=== PATIENT | female | born 1990 | race Two or more races ===

== ENCOUNTER 2020-02-14 09:23 | Outpatient (REF) | payer OTHER, SELFPAY ==
[2020-02-14 11:16] LABS: HBc Num1 0.05 S/CO (0.00-0.79); Hepatitis B Core Antibody Nonreactive (Nonreactive); Hepatitis B Surface Antigen Negative (Negative)
[2020-02-14 11:17] LABS: ~HepC Num1 0.07 S/CO (0.00-0.79); ~Hepatitis B Surface Antibody REACTIVE (Nonreactive); ~Hepatitis C Antibody Nonreactive (Nonreactive)
[2020-02-15 17:27] LABS: Rubella IgG Antibody 2.01 index; Rubeola IgG (Measles) >300.00 AU/mL
[2020-02-16 22:32] LABS: TS Negative Control Passed; TS Panel A 0; TS Panel B 0; TS Positive Control Passed; TSpotTB Negative (SeeBelow)
== END 2020-02-14 09:24 | disposition home or self-care (01) ==
LOC: HO.LAB 09:23
PROVIDERS: Visit Provider Internal Medicine
DX: Z02.1 Encounter for pre-employment examination (principal)
CPT/HCPCS: 86481; 86704; 86706; 86735; 86762; 86765; 86787; 86803; 87340

== ENCOUNTER 2020-07-21 16:27 | Emergency (ER) | payer OTHER, SELFPAY ==
[2020-07-21 17:25] VITALS: BP 121/68; PULSE 84; RESP 18; TEMP 36.9; O2SAT 100; BMI 23.3
[2020-07-21 18:39] LABS: Hematocrit 28.7 % (37-47); Hemoglobin 8.2 g/dl (12.0-16.0); Mean Corpuscular HGB Conc 28.6 g/dl (31.0-35.0); Mean Corpuscular Hemoglobin 19.1 pg (27.0-33.0); Mean Corpuscular Volume 66.9 fL (80-98); Mean Platelet Volume 10.6 fL (9.4-12.3); Platelet Count 512 X10*3/uL (160-400); Red Blood Count 4.29 X10*6/uL (4.20-5.50); Red Cell Distribution Width 17.6 % (11.0-16.0); White Blood Count 6.9 X10*3/uL (4.8-10.8)
[2020-07-21 18:44] LABS: Anion Gap 12 (12-20); Blood Urea Nitrogen 15 mg/dL (9-16); Carbon Dioxide 27 mmol/L (22-29); Chloride 107 mmol/L (96-108); Creatinine Clr Calc Pharmacy 103.8; Estimated Glomerular Filt Rate > 60; Glucose Random 87 mg/dL (60-115); Potassium 4.6 mmol/L (3.3-5.1); Sodium 141 mmol/L (135-145)
--- NOTE | 2020-07-21 19:44 | ED.RECABL ---
HPI - Recheck/Abnormal Lab/Rx General Chief Complaint: Recheck/Abnormal Lab/Rx Stated Complaint: Abnormal labs Time Seen by Provider: 07/21/20 19:27 Source: patient Mode of arrival: ambulatory Limitations: no limitations History of Present Illness HPI narrative: 30 y/o healthy female presenting with low blood counts. 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 She reports over the last 2-3 months she has been feeling very fatigued, dizzy and SOB with exertion. She also states that her menses have been very heavy lately and lasting 7-8 days. She is currently on day 2 of her menstrual cycle now. She denies history of anemia. No melena or BRBPR. She is not on blood thinners. MD complaint: abnormal lab Initial visit (ago): week(s) Returns today for: called because of abnormal lab/test Description of abnormal result: anemia, hgb 7 Associated symptoms: shortness of breath and other (dizziness & fatigue ) Related Data Previous Rx's Medication Instructions Recorded ferrous sulfate 325 mg PO DAILY #30 tab 07/22/20 Allergies Allergy/AdvReac Type Severity Reaction Status Date / Time No Known Allergies Allergy Unverified 07/21/20 17:25 [No Known Allergies*] Review of Systems Review of Systems: Constitutional: No Fever, No Chills ENT/Mouth: No sore throat, No Rhinorrhea, No Swallowing Difficulty Cardiovascular: No Chest Pain, No SOB, No Orthopnea, No Edema Respiratory: No Cough, No Sputum, No Wheezing, No dyspnea Gastrointestinal: No Nausea, No Vomiting, No Diarrhea, No abdominal Pain, No Hematochezia, No Melena Genitourinary: No Dysuria, No Urinary Frequency, No Hematuria, +heavy vaginal bleeding, No vaginal discharge Musculoskeletal: No joint pain, No Myalgias Skin: No Skin Lesions, No rash Neuro: No Weakness, No Numbness, No Dizziness, No Headache Psych: No Anxiety/Panic, No Depression Heme/Lymph: No Bruising, No Lymphadenopathy Endocrine: No Polyuria, No Polydipsia PMF Past Medical History Medical History Anxiety Asthma PCOS (polycystic ovarian syndrome) PTSD (post-traumatic stress disorder) Social History Social History Alcohol intake: never Smoking Status: Former smoker Use of substances other than those prescribed or required for medical reasons: No Advance Directives: No Advance Directives Information Provided: Yes Physical Exam Vital Signs: Vital Signs: Last Vital Signs Temp 98.0 F 07/22/20 00:00 Pulse 53 07/22/20 00:00 Resp 16 07/22/20 00:00 BP 103/66 07/22/20 00:00 Pulse Ox 100 07/22/20 00:00 Body Mass Index 23.3 Appearance: Alert. Oriented X3. No acute distress. Eyes: Pupils equal, round and reactive to light. Conjunctiva with pallor ENT: Pharynx normal. Neck: Normal inspection. Neck supple. CVS: Normal heart rate and rhythm. Pulses normal. Respiratory: No respiratory distress. Breath sounds normal. Abdomen: Soft and nontender. +BS x4. Pelvic exam deferred Skin: Skin warm and dry. Normal skin color. Normal skin turgor. No rashes. Extremities: No lower extremity edema. Neuro: Oriented X 3. No motor deficit. No sensory deficit. Course Course Course Narrative: 30 y/o female presenting with symptomatic anemia. H/H 11/18 with SOB, dizziness and ROCHA. She is on her period now, day 2 and it is heavy flow. She is uncomfortable starting any hormonal therapy without speaking with her BENEFITS COUNSELOR first. She is agreeable to blood transfusion at this time and given she is symptomatic will transfuse. Consent obtained. Reevaluation(s) Reevaluation #1: Patient tolerated blood transfusion well. She is stable for discharge with plan to f/u with her assembly press operator Friday as well as Heme/Onc for workup of her microcytic anemia. Her retic counts are on the low side given her degree of anemia. Will start her on oral iron. She agrees to follow up and will come back to the ER if symptoms worsen. MDM - Recheck/Abnormal Lab/Rx Lab Data Result diagrams: 07/21/20 18:11 07/21/20 18:11 Labs: Lab Results 07/21/20 07/21/20 07/21/20 Range/Units 18:11 18:11 19:50 WBC 6.9 (4.8-10.8) X10*3/uL RBC 4.29 (4.20-5.50) X10*6/uL Hgb 8.2 L (12.0-16.0) g/dl Hct 28.7 L (37-47) % MCV 66.9 L (80-98) fL MCH 19.1 L (27.0-33.0) pg MCHC 28.6 L (31.0-35.0) g/dl RDW 17.6 H (11.0-16.0) % Plt Count 512 H (160-400) X10*3/uL MPV 10.6 (9.4-12.3) fL Immature Gran % (Auto) Cancelled Neut % (Auto) Cancelled Lymph % (Auto) Cancelled [place] % (Auto) Cancelled Eos % (Auto) Cancelled Baso % (Auto) Cancelled Lymph # (Auto) Cancelled [place] # (Auto) Cancelled Eos # (Auto) Cancelled Baso # (Auto) Cancelled Abs Immat Gran (auto) Cancelled Absolute Neuts (auto) Cancelled Absolute Nucleated RBC 0.000 (0.0-0.012) X10*3/uL Nucleated RBC % (auto) 0.0 (0.0-0.2) /100WBC Neutrophils % (Manual) 56 (45-73) % Band Neutrophils % 0 L (3-5) % Lymphocytes % (Manual) 36 (20-40) % Monocytes % (Manual) 6 (2-11) % Basophils % (Manual) 2 H (0-1) % Abs Neuts (Manual) 3.9 (2.2-7.9) X10*3/uL Lymphocytes # (Manual) 2.5 (0.6-4.8) X10*3/uL Monocytes # (Manual) 0.4 (0.0-1.2) X10*3/uL Basophils # (Manual) 0.1 (0.0-0.3) X10*3/uL Platelet Estimate SLIGHTLY INCREASED (NORMAL) Plt Morphology Comment NORMAL RBC Morphology NOTED Hypochromasia 3+ (>30) /OIF Microcytosis 2+ (15-30) /OIF Ovalocytes 2+ (15-30) /OIF Smear Tech's Comments MANUAL DIFF Absolute Retic 0.043 (0.026-0.095) X10*6/uL Percent Retic 1.0 (0.5-1.8) % Immature Retic Fraction 11.5 (3.0-15.9) % Retic Hgb Equivalent 18.5 L (30.0-35.0) pg Sodium 141 (135-145) mmol/L Potassium 4.6 (3.3-5.1) mmol/L Chloride 107 (96-108) mmol/L Carbon Dioxide 27 (22-29) mmol/L Anion Gap 12 (12-20) BUN 15 (9-16) mg/dL Creatinine 0.70 (0.5-1.4) mg/dL Estim Creat Clear Calc 103.8 Estimated GFR > 60 Random Glucose 87 (60-115) mg/dL Calcium 9.0 (8.4-10.2) mg/dL Blood Type O Positive Antibody Screen NEGATIVE Crossmatch See Detail Discharge Plan Discharge Clinical Impression: Acute blood loss anemia Patient Disposition: Home, Self-Care Instructions: Anemia (ED) Additional Instructions: Your blood counts today were low. Hemoglobin was 8.2. You were given a unit of blood given your symptoms of anemia, including fatigue and shortness of breath. Recommend starting iron supplements. You need to follow up with your BENEFITS COUNSELOR on Friday. There are medications you can be started on to help lessen your menstrual flow. You may need further workup at a [facility] - the number to call is below. Also recommend following up with your doctor next week. If you have worsening symptoms come back to the ER for further evaluation. Prescriptions: New ferrous sulfate 325 mg (65 mg iron) tablet 325 mg PO DAILY Qty: 30 RF: 0 Referrals: Margy Albright MD [Physician] - 1 week (symptomatic microcytic anemia)
[2020-07-21 19:54] LABS: Immature Retic Fraction 11.5 % (3.0-15.9); Retic HGB Equivalent 18.5 pg (30.0-35.0); Reticulocytes Absolute 0.043 X10*6/uL (0.026-0.095)
[2020-07-21 19:56] LABS: SLIDE REVIEW MANUAL DIFF
[2020-07-21 20:18] LABS: Band Neutrophils Percent 0 % (3-5); Basophils Abs Manual 0.1 X10*3/uL (0.0-0.3); Basophils Percent Manual 2 % (0-1); Lymphocytes Absolute Manual 2.5 X10*3/uL (0.6-4.8); Lymphocytes Percent Manual 36 % (20-40); Monocytes Absolute Manual 0.4 X10*3/uL (0.0-1.2); Monocytes Percent Manual 6 % (2-11); Neutrophils Absolute Manual 3.9 X10*3/uL (2.2-7.9); Neutrophils Percent Manual 56 % (45-73); RBC Morphology NOTED
[2020-07-21 20:19] VITALS: BP 113/59; PULSE 71; RESP 16; TEMP 37.1; O2SAT 100
[2020-07-21 20:20] LABS: Hypochromasia 3+ (>30) /OIF; Microcytosis 2+ (15-30) /OIF
[2020-07-21 20:21] LABS: Ovalocytes 2+ (15-30) /OIF
[2020-07-21 20:22] LABS: Platelet Estimate SLIGHTLY INCREASED (NORMAL); Platelet Morphology Comment NORMAL
[2020-07-21 22:00] VITALS: BP 105/70; PULSE 74; RESP 16; TEMP 36.8; O2SAT 100
[2020-07-21 22:33] VITALS: BP 115/75; PULSE 71; RESP 12; TEMP 36.7
[2020-07-21 22:49] VITALS: BP 110/58; BP 110/65; PULSE 65; PULSE 72; RESP 10; RESP 11; TEMP 36.6; TEMP 36.7
--- NOTE | 2020-07-21 23:32 | PC.NURSE ---
Blood tranfusion began at 2234 without incident. Patient tolerated the first 15 minutes without incident.
[2020-07-22] VITALS: BP 103/66; PULSE 53; RESP 16; TEMP 36.7; O2SAT 100
[2020-07-22 00:27] LABS: MANUAL DIFF FLAG NO
[2020-07-22 00:28] LABS: Basophils Absolute Auto 0.1 X10*3/uL (0.0-0.2); Basophils Percent Auto 1.2 % (0-2); Eosinophils Absolute Auto 0.1 X10*3/uL (0.0-0.4); Hematocrit 31.3 % (37-47); Hemoglobin 9.3 g/dl (12.0-16.0); Imm Gran Abs Auto 0.01 X10*3/uL (0.00-0.03); Imm Gran Pct Auto 0.1 % (0.0-0.4); Lymphocytes Absolute Auto 3.6 X10*3/uL (1.2-4.9); Lymphocytes Percent Auto 47.4 % (20-40); Mean Corpuscular HGB Conc 29.7 g/dl (31.0-35.0); Mean Corpuscular Hemoglobin 20.8 pg (27.0-33.0); Mean Corpuscular Volume 69.9 fL (80-98); Mean Platelet Volume 9.9 fL (9.4-12.3); Monocytes Absolute Auto 0.6 X10*3/uL (0.1-1.2); Monocytes Percent Auto 7.8 % (2-11); Neutrophils Absolute Auto 3.3 X10*3/uL (2.0-8.3); Neutrophils Percent Auto 42.5 % (45-73); Platelet Count 424 X10*3/uL (160-400); Red Blood Count 4.48 X10*6/uL (4.20-5.50); Red Cell Distribution Width 20.4 % (11.0-16.0); White Blood Count 7.7 X10*3/uL (4.8-10.8)
== END 2020-07-22 00:57 | disposition home or self-care (01) ==
PROVIDERS: Physician Assistant; Emergency Provider Internal Medicine; PCP Internal Medicine
DX: D62 Acute posthemorrhagic anemia (principal); R53.83 Other fatigue; R42 Dizziness and giddiness; R06.02 Shortness of breath
CPT/HCPCS: 36415; 36430; 80048; 85007; 85025; 85027; 85045; 86850; 86900; 86901; 86923; 99284; 99285; P9016

== ENCOUNTER 2020-07-24 09:40 | Outpatient (REF) | payer OTHER, SELFPAY ==
[2020-07-24 11:09] LABS: Glucose Urine UA NEG (NEG); Leukocyte Esterase Urine NEG (NEG); Nitrite Urine NEG (NEG); PH 6.5 (5.0-8.0); Specific Gravity - Urine 1.015 (1.005-1.025); Urine Blood TRACE (NEG); Urine Ketones NEG (NEG); Urine Protein NEG (NEG-TRACE)
[2020-07-24 11:14] LABS: Basophils Absolute Auto 0.1 X10*3/uL (0.0-0.2); Hemoglobin 10.4 g/dl (12.0-16.0); MANUAL DIFF FLAG SCAN; Mean Corpuscular Volume 70.6 fL (80-98); SCAN SMEAR FLAG 1
[2020-07-24 11:16] LABS: Basophils Percent Auto 1.3 % (0-2); Eosinophils Percent Auto 0.6 % (0-4); Hematocrit 36.3 % (37-47); Imm Gran Abs Auto 0.02 X10*3/uL (0.00-0.03); Imm Gran Pct Auto 0.3 % (0.0-0.4); Immature Retic Fraction 20.2 % (3.0-15.9); Lymphocytes Absolute Auto 1.5 X10*3/uL (1.2-4.9); Lymphocytes Percent Auto 24.6 % (20-40); Mean Corpuscular HGB Conc 28.7 g/dl (31.0-35.0); Mean Corpuscular Hemoglobin 20.2 pg (27.0-33.0); Mean Platelet Volume 10.5 fL (9.4-12.3); Monocytes Absolute Auto 0.5 X10*3/uL (0.1-1.2); Monocytes Percent Auto 8.3 % (2-11); Neutrophils Percent Auto 64.9 % (45-73); Platelet Count 459 X10*3/uL (160-400); Red Blood Count 5.14 X10*6/uL (4.20-5.50); Red Cell Distribution Width 21.1 % (11.0-16.0); Retic HGB Equivalent 22.9 pg (30.0-35.0); Reticulocytes Absolute 0.051 X10*6/uL (0.026-0.095); White Blood Count 6.2 X10*3/uL (4.8-10.8)
[2020-07-24 11:31] LABS: Appearance Urine CLEAR; Color Urine YELLOW
[2020-07-24 11:33] LABS: Alanine Aminotransferase 18 U/L (0-31); Albumin Level 4.3 g/dL (3.5-5.0); Alkaline Phosphatase 64 U/L (39-117); Anion Gap 12 (12-20); Aspartate Amino Transferase 23 U/L (5-31); Bilirubin Total 0.3 mg/dL (0.0-1.0); Blood Urea Nitrogen 14 mg/dL (9-16); Carbon Dioxide 27 mmol/L (22-29); Chloride 106 mmol/L (96-108); Estimated Glomerular Filt Rate > 60; Glucose Random 76 mg/dL (60-115); Iron 139 mcg/dL (30-160); Percent Iron Saturation 31 % (15-50); Potassium 4.8 mmol/L (3.3-5.1); Sodium 140 mmol/L (135-145); Total Iron Binding Capacity 452 mcg/dL (228-428); Total Protein 6.8 g/dL (6.5-8.0); Unsaturated Iron Binding 313 ug/dL
[2020-07-24 11:41] LABS: SLIDE REVIEW VERIFIED
[2020-07-24 11:49] LABS: Syphilis Screen Nonreactive (Nonreactive)
[2020-07-24 11:50] LABS: HIV AB/AG Nonreactive (Nonreactive); HIV Num 1 0.05 S/CO (0.00-0.99); Hepatitis B Surface Antigen Negative (Negative); ~HepC Num1 0.09 S/CO (0.00-0.79); ~Hepatitis C Antibody Nonreactive (Nonreactive)
[2020-07-24 11:55] LABS: Ferritin 8 ng/mL (10-122); Free T4 (Free Thyroxine) 1.04 ng/dL (0.71-1.85); Thyroid Stimulating Hormone 1.82 uIU/mL (0.32-4.0)
[2020-07-24 12:03] LABS: Folate 15.2 ng/mL (> or = 4.0); HBc Num1 0.04 S/CO (0.00-0.79); Hepatitis B Core Antibody Nonreactive (Nonreactive); Vitamin B12 323 pg/mL (200-900); ~Hepatitis B Surface Antibody REACTIVE (Nonreactive)
[2020-07-24 12:24] LABS: RBC Urine 0 /HPF (0); Squamous Epithelial Cell Urine 2+ /LPF; WBC Urine 0 /HPF (0-4)
== END 2020-07-24 09:41 | disposition home or self-care (01) ==
LOC: HO.LAB 09:40
PROVIDERS: PCP Internal Medicine; Visit Provider Internal Medicine
DX: D50.0 Iron deficiency anemia secondary to blood loss (chronic) (principal); R94.5 Abnormal results of liver function studies; N92.1 Excessive and frequent menstruation with irregular cycle
CPT/HCPCS: 36415; 80053; 81001; 82607; 82728; 82746; 83540; 84439; 84443; 85025; 85045; 86704; 86706; 86780; 86803; 87340; 87389

== ENCOUNTER 2020-08-09 14:34 | Outpatient (REF) | payer OTHER, SELFPAY ==
--- NOTE | ~2020-08-09 | US_ITS ---
EXAMINATION: ULTRASOUND PELVIS AND TRANSVAGINAL. CLINICAL INFORMATION: Excessive and frequent menstruation COMPARISON: None TECHNIQUE: Transabdominal and transvaginal imaging of pelvis is performed. FINDINGS: The uterus is anteverted measuring 7.1 cm in length, 3.6 cm in AP and 4.3 cm in transverse dimension. Endometrial thickness is 0.4 x 0.5 cm. There are small nabothian cysts in the cervix. The right ovary measures 3.9 x 3.1 x 2.2 cm and volume 14 mL. It appears unremarkable. The left ovary measures 4.0 x 2.0 x by 2.1 cm and volume 9.0 mL. It appears unremarkable. There is no free fluid in the cul-de-sac. US/US pelvic and transvaginal IMPRESSION: Unremarkable uterus and ovaries. Small nabothian cysts seen in the cervix.
== END 2020-08-09 14:35 | disposition home or self-care (01) ==
LOC: HO.US 14:34
PROVIDERS: Visit Provider Internal Medicine
DX: N92.1 Excessive and frequent menstruation with irregular cycle (principal)
CPT/HCPCS: 76830; 76856

== ENCOUNTER 2020-08-25 11:34 | Outpatient (REF) | payer OTHER, SELFPAY | END 2020-08-25 11:35 | disposition home or self-care (01) | LOC: HO.MDS 11:34 | PROVIDERS: PCP Internal Medicine; Visit Provider Internal Medicine Medical Oncology | DX: D50.9 Iron deficiency anemia, unspecified (principal) | CPT/HCPCS: 96365; J2916 ==

== ENCOUNTER 2020-09-01 14:37 | Outpatient (REF) | payer OTHER, SELFPAY | END 2020-09-01 14:38 | disposition home or self-care (01) | LOC: HO.MDS 14:37 | PROVIDERS: PCP Internal Medicine; Visit Provider Internal Medicine Medical Oncology | DX: D50.9 Iron deficiency anemia, unspecified (principal) | CPT/HCPCS: 96365; J2916 ==

== ENCOUNTER 2020-09-04 14:01 | Outpatient (REF) | payer OTHER, SELFPAY | END 2020-09-04 14:02 | disposition home or self-care (01) | LOC: HO.MDS 14:01 | PROVIDERS: Visit Provider Internal Medicine Medical Oncology | DX: D50.9 Iron deficiency anemia, unspecified (principal) | CPT/HCPCS: 96365; J2916 ==

== ENCOUNTER 2020-09-12 17:55 | Outpatient (REF) | payer OTHER, SELFPAY ==
[2020-09-12 18:16] LABS: Appearance Urine CLEAR; Color Urine YELLOW; Glucose Urine UA NEG (NEG); Leukocyte Esterase Urine NEG (NEG); Nitrite Urine NEG (NEG); Specific Gravity - Urine 1.025 (1.005-1.025); Urine Blood NEG (NEG); Urine Ketones 5 MG/DL (NEG); Urine Protein NEG (NEG-TRACE)
[2020-09-12 18:26] LABS: RBC Urine 0 /HPF (0); Squamous Epithelial Cell Urine 1+ /LPF; WBC Urine 0-2 /HPF (0-4)
[2020-09-13 07:57] LABS: HBc Num1 0.05 S/CO (0.00-0.79); Hepatitis B Core Antibody Nonreactive (Nonreactive); ~HepC Num1 0.05 S/CO (0.00-0.79); ~Hepatitis C Antibody Nonreactive (Nonreactive)
[2020-09-13 08:07] LABS: HBS Num1 165.33 mIU/mL (0-7.99); HBsAGNum1 0.36 S/CO (0.00-0.99); HIV AB/AG Nonreactive (Nonreactive); HIV Num 1 0.17 S/CO (0.00-0.99); Hepatitis B Surface Antigen Negative (Negative); ~Hepatitis B Surface Antibody REACTIVE (Nonreactive)
[2020-09-13 08:54] LABS: Syphilis Screen Nonreactive (Nonreactive)
== END 2020-09-12 17:56 | disposition home or self-care (01) ==
LOC: HO.LAB 17:55
PROVIDERS: PCP Internal Medicine; Visit Provider Internal Medicine
DX: N89.8 Other specified noninflammatory disorders of vagina (principal); D50.0 Iron deficiency anemia secondary to blood loss (chronic); R94.5 Abnormal results of liver function studies; Z11.3 Encounter for screening for infections with a predominantly sexual mode of transmission
CPT/HCPCS: 36415; 81001; 86704; 86706; 86780; 86803; 87340; 87389

== ENCOUNTER 2020-09-13 12:32 | Outpatient (REF) | payer OTHER, SELFPAY ==
[2020-09-14 03:54] LABS: CT PCR NOT DETECTED (Not Detect.); NG PCR NOT DETECTED (Not Detect.)
[2020-09-14 10:03] LABS: BV Int Neg Control Negative (Negative); BV Int Pos Control Positive (Positive)
[2020-09-27 21:06] LABS: HPV mRNA E6/E7 rflx Not Detected (Not Detected)
== END 2020-09-13 12:33 | disposition home or self-care (01) ==
LOC: HO.LAB 12:32
PROVIDERS: Visit Provider Internal Medicine
DX: Z12.4 Encounter for screening for malignant neoplasm of cervix (principal); Z11.3 Encounter for screening for infections with a predominantly sexual mode of transmission
CPT/HCPCS: 87480; 87491; 87510; 87591; 87624; 87660; 88142

== ENCOUNTER 2020-09-18 13:55 | Outpatient (REF) | payer OTHER, SELFPAY ==
[2020-09-18 15:14] LABS: MANUAL DIFF FLAG NO
[2020-09-18 15:17] LABS: Basophils Absolute Auto 0.1 X10*3/uL (0.0-0.2); Basophils Percent Auto 1.1 % (0-2); Eosinophils Percent Auto 0.4 % (0-4); Hematocrit 38.8 % (37-47); Imm Gran Abs Auto 0.01 X10*3/uL (0.00-0.03); Imm Gran Pct Auto 0.2 % (0.0-0.4); Lymphocytes Absolute Auto 1.6 X10*3/uL (1.2-4.9); Lymphocytes Percent Auto 30.7 % (20-40); Mean Corpuscular HGB Conc 30.9 g/dl (31.0-35.0); Mean Corpuscular Hemoglobin 24.8 pg (27.0-33.0); Mean Corpuscular Volume 80.3 fL (80-98); Monocytes Absolute Auto 0.3 X10*3/uL (0.1-1.2); Monocytes Percent Auto 6.2 % (2-11); Neutrophils Absolute Auto 3.3 X10*3/uL (2.0-8.3); Neutrophils Percent Auto 61.4 % (45-73); Platelet Count 271 X10*3/uL (160-400); Red Blood Count 4.83 X10*6/uL (4.20-5.50); Red Cell Distribution Width 23.5 % (11.0-16.0); White Blood Count 5.4 X10*3/uL (4.8-10.8)
== END 2020-09-18 13:56 | disposition home or self-care (01) ==
LOC: HO.MDS 13:55
PROVIDERS: PCP Internal Medicine; Visit Provider Internal Medicine Medical Oncology
DX: D50.9 Iron deficiency anemia, unspecified (principal)
CPT/HCPCS: 36415; 85025; 96372; J2916

== ENCOUNTER 2021-12-29 07:14 | Outpatient (REF) | payer OTHER, SELFPAY ==
[2021-12-29 07:41] LABS: MANUAL DIFF FLAG NO
[2021-12-29 08:24] LABS: Basophils Absolute Auto 0.1 X10*3/uL (0.0-0.2); Basophils Percent Auto 0.8 % (0-2); Eosinophils Absolute Auto 0.1 X10*3/uL (0.0-0.4); Eosinophils Percent Auto 0.9 % (0-4); Hematocrit 43.2 % (37.0-47.0); Hemoglobin 13.8 g/dl (12.0-16.0); Imm Gran Abs Auto 0.01 X10*3/uL (0.00-0.03); Imm Gran Pct Auto 0.2 % (0.0-0.4); Lymphocytes Absolute Auto 1.7 X10*3/uL (1.2-4.9); Lymphocytes Percent Auto 26.3 % (20-40); Mean Corpuscular HGB Conc 31.9 g/dl (31.0-35.0); Mean Corpuscular Hemoglobin 27.3 pg (27.0-33.0); Mean Corpuscular Volume 85.4 fL (80.0-98.0); Mean Platelet Volume 11.5 fL (9.4-12.3); Monocytes Absolute Auto 0.4 X10*3/uL (0.1-1.2); Monocytes Percent Auto 6.9 % (2-11); Neutrophils Absolute Auto 4.2 x10*3/uL (2.0-8.3); Neutrophils Percent Auto 64.9 % (45-73); Platelet Count 284 X10*3/uL (160-400); Red Blood Count 5.06 X10*6/uL (4.20-5.50); Red Cell Distribution Width 13.6 % (11.0-16.0); White Blood Count 6.4 X10*3/uL (4.8-10.8)
[2021-12-29 09:20] LABS: Alanine Aminotransferase 27 U/L (0-31); Albumin Level 4.4 g/dL (3.5-5.0); Alkaline Phosphatase 67 U/L (39-117); Anion Gap 13 (12-20); Aspartate Amino Transferase 25 U/L (5-31); Bilirubin Total 0.4 mg/dL (0.0-1.0); Blood Urea Nitrogen 12 mg/dL (9-16); Calcium 9.4 mg/dL (8.4-10.2); Carbon Dioxide 28 mmol/L (22-29); Chloride 104 mmol/L (96-108); Estimated Glomerular Filt Rate > 60; Glucose Random 84 mg/dL (60-115); Potassium 4.6 mmol/L (3.3-5.1); Sodium 140 mmol/L (135-145)
[2021-12-29 10:05] LABS: Appearance Urine Clear; Color Urine Yellow; Glucose Urine UA Negative (Negative); Leukocyte Esterase Urine Negative (Negative); Nitrite Urine Negative (Negative); Urine Blood Negative (Negative); Urine Ketones Negative (Negative); Urine Protein Negative (Neg-Trace)
[2021-12-31 05:02] LABS: HBc Num1 0.07 S/CO (0.00-0.79); HBsAGNum1 0.14 S/CO (0.00-0.99); Hepatitis B Core Antibody Nonreactive (Nonreactive); Hepatitis B Surface Antigen Negative (Negative); ~HepC Num1 0.15 S/CO (0.00-0.79); ~Hepatitis B Surface Antibody REACTIVE (Nonreactive); ~Hepatitis C Antibody Nonreactive (Nonreactive)
[2021-12-31 05:32] LABS: HIV AB/AG Nonreactive (Nonreactive); HIV Num 1 0.07 S/CO (0.00-0.99)
[2022-01-02 19:06] LABS: Treponema pallidum Ab FTA ABS Nonreactive (Nonreactive)
== END 2021-12-29 07:15 | disposition home or self-care (01) ==
LOC: HO.LAB 07:14
PROVIDERS: Nurse Practitioner Family; PCP Internal Medicine; Visit Provider Internal Medicine
DX: R10.32 Left lower quadrant pain (principal); R14.0 Abdominal distension (gaseous); R79.89 Other specified abnormal findings of blood chemistry; Z11.4 Encounter for screening for human immunodeficiency virus [HIV]; Z11.59 Encounter for screening for other viral diseases
CPT/HCPCS: 36415; 80053; 81003; 81382; 85025; 86704; 86706; 86780; 86803; 87340; 87389

== ENCOUNTER 2021-12-31 09:57 | Outpatient (REF) | payer OTHER, SELFPAY ==
[2022-01-02 11:51] LABS: TS Negative Control Passed; TS Panel A 0; TS Panel B 0; TS Positive Control Passed; TSpotTB Negative (Negative)
== END 2021-12-31 09:58 | disposition home or self-care (01) ==
LOC: HO.LAB 09:57
PROVIDERS: PCP Internal Medicine; Visit Provider Internal Medicine
DX: Z20.2 Contact with and (suspected) exposure to infections with a predominantly sexual mode of transmission (principal); Z11.1 Encounter for screening for respiratory tuberculosis
CPT/HCPCS: 36415; 86481

== ENCOUNTER → 2022-01-31 14:41 | Outpatient (REF) | payer OTHER, SELFPAY | LOC: HO.SL 14:41 | PROVIDERS: PCP Internal Medicine; Visit Provider Internal Medicine | DX: G47.10 Hypersomnia, unspecified (principal); R06.83 Snoring | CPT/HCPCS: 95806 ==

== ENCOUNTER 2022-02-01 07:50 | Outpatient (REF) | payer OTHER, SELFPAY ==
[2022-02-01 08:49] LABS: Cholesterol 158 mg/dL; HDL Cholesterol 68 mg/dL; LDL Cholesterol Calculated 81 mg/dl; Triglycerides 48 mg/dL
[2022-02-01 12:44] LABS: Vitamin D 25-OH Total 27.6 ng/mL (>30)
[2022-02-08 13:11] LABS: Transglutaminase Ab IgG <1.0 U/mL; Transglutaminase IgA <1.0 U/mL
== END 2022-02-01 07:51 | disposition home or self-care (01) ==
LOC: HO.LAB 07:50
PROVIDERS: Visit Provider Nurse Practitioner Family
DX: Z00.00 Encounter for general adult medical examination without abnormal findings (principal); R14.0 Abdominal distension (gaseous)
CPT/HCPCS: 36415; 80061; 82306; 84443; 86364

== ENCOUNTER → 2023-11-27 13:49 | Outpatient (RCR) | payer OTHER, SELFPAY ==
[2020-08-11 14:05] VITALS: BP 131/73; PULSE 95; RESP 12; TEMP 36.8; O2SAT 99; BMI 24.9
--- NOTE | 2020-08-11 14:34 | P.CNHO_ITS ---
Subjective - Subjective Chief complaint: Consult for: Iron deficiency anemia. Patient: new to practice Consult date: 08/11/20 Primary Care Provider: Ronit Monroe MD Medical Summary: DIAGNOSIS: IRON DEFICIENCY ANEMIA. HPI - Consult Narrative Reason for consult: Consult for: Iron deficiency anemia. Narrative: Cassia Scott is a pleasant 30 year old lady, who has been feeling rather fatigued. Review of her labs revealed, the following hemoglobin trend: 06/09:11.5. 07/21: 8.2. She has received 1 unit of blood in the ER. 07/22: 9.3. /: 10.4. She has been started on oral iron and vitamin-C. ROS: She tells me that she had a gastric sleeve operation at [facility] in 2016. Since then she has felt progressively more fatigued. Denies fever nor chills. Appetite is good. She has lost weight. Denies headaches. She does get dizzy at times. She has chest pain and trouble breathing on exertion. She complains of some pain in the abdomen and bloating as if she was . Bowels are mostly constipated. Denies gross blood in the stools. She does have a heavy period. She has an appointment with counseling center managerRoseline at [facility] on September 01. If she drinks lots of fluids she has to go to the bathroom a lot. She complains of pain in her joints. Her bones crack. That hurts. She has depression and anxiety. She has mood swings. Family history: Her mom had anemia. She was on IV iron. 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 She is not . She has no children. She lost 1 child during . She denies smoking. She used to drink heavily but quit couple years ago. Review of Systems - Constitutional Reports no additional constitutional complaints, Reports lack of energy, Reports malaise, Reports weight gain - Eyes Reports no additional eye complaints - ENT Reports no additional ear, nose, mouth, and throat complaints - Cardiovascular Reports no additional cardiovascular complaints - Respiratory Reports no additional respiratory complaints - Gastrointestinal Reports no additional gastrointestinal complaints - Genitourinary Reports no additional female genitourinary complaints - Musculoskeletal Reports no additional musculoskeletal complaints - Integumentary/Breasts Skin/Breast: Reports no additional skin complaints - Neurologic Reports no additional neurologic complaints - Psychiatric Reports no additional psychiatric complaints - Endocrine Reports no additional endocrine complaints - Hematologic/Lymphatic Reports no additional hematologic/lymphatic complaints - Allergic/Immunologic Reports no additional allergic/immunologic complaints Oncology Screenings - ECOG Performance Status ECOG Performance Status: 1 [facility] Medical History: Medical History (Last Reviewed 08/11/20 @ 14:06 by Tanika Bran) Anxiety Asthma PCOS (polycystic ovarian syndrome) PTSD (post-traumatic stress disorder) Functional capacity: independent ambulation Patient : No Family History: Family History (Last Updated 08/11/20 @ 14:07 by Tanika Brna) Maternal Grandfather Anemia Myocardial infarct Beta-thalassemia Father Myocardial infarct Mother Anemia Sister Anemia Surgical History: Surgical History (Last Reviewed 08/11/20 @ 14:06 by Tanika Bran) History of sleeve gastrectomy Social History: Social History (Last Updated 08/11/20 @ 14:06 by Tnaika Bran) Alcohol History: Alcohol intake: current Alcohol History Details: Alcohol intake frequency: holiday/special occasion Alcohol type: beer Tobacco History: Smoking Status: Former smoker Substance Use History: Use of substances other than those prescribed or required for medical reasons : No Nutrition Assessment: Patient : No Smoking status: Former smoker Home Medications and Allergies Allergies Allergy/AdvReac Type Severity Reaction Status Date / Time No Known Allergies Allergy Unverified 07/21/20 17:25 [No Known Allergies*] Physical Exam Vital signs: Vital Signs Temp 98.2 F 08/11/20 14:05 Pulse 95 08/11/20 14:05 Resp 12 08/11/20 14:05 BP 131/73 08/11/20 14:05 Pulse Ox 99 08/11/20 14:05 Intake & Output 08/10/20 08/11/20 08/11/20 18:59 06:59 18:59 Other: Weight 67.9 kg Weight in Grams [id number] Weight 67.9 kg - Constitutional Present: mild distress - Routine HEENT Exam Head: Present: normal inspection ENT: Present: mucous membranes moist - Routine Neck Exam Present: supple Hem/Onc Consult Result - Labs CBC & Chem 7: 08/11/20 14:50 08/11/20 14:50 Assessment and Plan (1) Iron deficiency anemia Status: Acute Iron studies: Previous iron studies: 139452. Recent iron studies: 45. Retic: 1. B12 323. Folate 1.5.2. This is a pleasant 30-year-old lady, who has had easy fatigability, progressing over the past few years. She has been noted to be anemic. Anemia is microcytic hypochromic. She did require a blood transfusion 3 weeks ago, in the ER. DIFFERENTIAL DIAGNOSIS: 1. IRON DEFICIENCY ANEMIA: She has history of heavy periods. Ferritin is low. So this is most likely. The other possibilities of celiac disease related to iron malabsorption. 2. ANEMIA OF CHRONIC DISEASE: Is a possibility. 3. MULTIFACTORIAL ANEMIA WITH ADDITIONAL B12 FOLATE DEFICIENCY: However B12 and folate were checked and are normal. 4. HEMOLYTIC ANEMIA: This is less likely. 5. UNDERLYING MYELO INFILTRATIVE DISORDER: Less likely to be present, without any other hematological abnormality. PLAN: I will proceed with further evaluation. Will check iron studies and ferritin. Check transglutaminase IgA, to look for celiac disease. Check B12 and folate levels. Will arrange for IV iron. I gave her the choice between iron dextran and Ferrlecit. Went over the pros and the cons of both. She picked Ferrlecit. Will arrange it for short stay surgery for next week. Her blood count has actually improved. Hemoglobin is up to 11.8. She will probably just need a couple of doses. She will return in 3 months for a follow-up visit. She will continue her treatment under the care of counseling center manager, to cure the root cause of her anemia which is her heavy period. Thank you, CC: Dr. Monroe.
[2020-08-11 15:14] LABS: MANUAL DIFF FLAG SCAN; Mean Corpuscular Volume 73.5 fL (80-98); SCAN SMEAR FLAG 1
[2020-08-11 15:16] LABS: Basophils Absolute Auto 0.1 X10*3/uL (0.0-0.2); Basophils Percent Auto 0.7 % (0-2); Eosinophils Percent Auto 0.1 % (0-4); Hematocrit 39.2 % (37-47); Hemoglobin 11.8 g/dl (12.0-16.0); Imm Gran Abs Auto 0.02 X10*3/uL (0.00-0.03); Imm Gran Pct Auto 0.3 % (0.0-0.4); Lymphocytes Absolute Auto 1.8 X10*3/uL (1.2-4.9); Lymphocytes Percent Auto 25.7 % (20-40); Mean Corpuscular HGB Conc 30.1 g/dl (31.0-35.0); Mean Corpuscular Hemoglobin 22.1 pg (27.0-33.0); Mean Platelet Volume 11.3 fL (9.4-12.3); Monocytes Absolute Auto 0.4 X10*3/uL (0.1-1.2); Monocytes Percent Auto 6.2 % (2-11); Neutrophils Absolute Auto 4.6 X10*3/uL (2.0-8.3); PLT ABN DIST 1; Red Blood Count 5.33 X10*6/uL (4.20-5.50); Red Cell Distribution Width 25.8 % (11.0-16.0); White Blood Count 6.9 X10*3/uL (4.8-10.8)
[2020-08-11 15:34] LABS: Platelet Count 281 X10*3/uL (160-400); SLIDE REVIEW VERIFIED
[2020-08-11 15:40] LABS: Alanine Aminotransferase 23 U/L (0-31); Albumin Level 4.5 g/dL (3.5-5.0); Alkaline Phosphatase 61 U/L (39-117); Anion Gap 14 (12-20); Aspartate Amino Transferase 22 U/L (5-31); Bilirubin Total 0.7 mg/dL (0.0-1.0); Blood Urea Nitrogen 9 mg/dL (9-16); Calcium 9.4 mg/dL (8.4-10.2); Carbon Dioxide 27 mmol/L (22-29); Chloride 105 mmol/L (96-108); Creatinine Clr Calc Pharmacy 103.8; Estimated Glomerular Filt Rate > 60; Glucose Random 79 mg/dL (60-115); Potassium 4.2 mmol/L (3.3-5.1); Sodium 142 mmol/L (135-145); Total Protein 7.2 g/dL (6.5-8.0)
--- NOTE | 2020-08-11 16:05 | MHC.HEMONCMA ---
Addendum entered by Tanika Bran 08/14/20 11:49: Pt scheduled for ferrlecit on 08/25/20 @ 12pm. Pt notified. Original Note: Pt presents to f/u with iron deficiency. History reviewed, labs drawn and pt to return in 3 months.
[2020-08-11 16:24] LABS: Ferritin 19 ng/mL (10-122)
[2020-08-15 22:16] LABS: Transglutaminase IgA 1 U/mL
== END | disposition home or self-care (01) ==
LOC: HO.ONC 08-11 13:22
PROVIDERS: PCP Internal Medicine; Referring Provider Internal Medicine; Visit Provider Internal Medicine Medical Oncology
DX: D50.9 Iron deficiency anemia, unspecified (principal)
CPT/HCPCS: 36415; 80053; 82728; 83516; 85025; 99204